=== PATIENT | male | born 1980 | race African-American/Black ===

== ENCOUNTER 2016-12-10 23:07 | Emergency (ER) | payer OTHER ==
[~2016-12-10] VITALS: Ht 177.8 cm; Wt 79.4 kg
[~2016-12-10 23:07] MED LIST: BACTRIM DS TAB1 EACH PO; NAPROSYN500 MG PO; NORCO 5-325 TA1 EACH PO
[2016-12-10 23:09] VITALS: BP 139/99
[2016-12-10 23:33] LABS: URINE BILIRUBIN NEGATIVE (Negative); URINE BLOOD TRACE (Negative); URINE COLOR YELLOW; URINE GLUCOSE-RANDOM* NEGATIVE (Negative); URINE KETONES NEGATIVE (Negative); URINE LEUKOCYTES-REFLEX 1+ (Negative); URINE PROTEIN (DIPSTICK) TRACE (Negative); URINE UROBILINOGEN 0.2 E.U./dl (0.2-1.0)
[2016-12-10 23:51] LABS: SQUAMOUS 0-3 Few /LPF (0-3)
[2016-12-10 23:52] LABS: CASTS None Seen /LPF (None Seen); CRYSTALS None Seen /LPF (None Seen); UA COMMENTS SPERM PRESENT; URINE RBC 0-2 Rare /HPF (0-2)
== END 2016-12-11 00:05 | disposition home or self-care (01) ==
LOC: ER 23:07
PROVIDERS: Physician Assistant
DX: Z11.3 Encounter for screening for infections with a predominantly sexual mode of transmission (principal); F17.210 Nicotine dependence, cigarettes, uncomplicated

== ENCOUNTER 2017-12-13 13:02 | Emergency (ER) | payer OTHER ==
[~2017-12-13] VITALS: Ht 177.8 cm; Wt 83.9 kg
[~2017-12-13 13:02] MED LIST changes: +DIFLUCAN150 MG PO; +FLAGYL500 MG PO
[2017-12-13 14:07] LABS: URINE BILIRUBIN NEGATIVE (Negative); URINE BLOOD NEGATIVE (Negative); URINE CLARITY CLEAR; URINE COLOR YELLOW; URINE GLUCOSE-RANDOM* NEGATIVE (Negative); URINE KETONES NEGATIVE (Negative); URINE LEUKOCYTES NEGATIVE (Negative); URINE NITRITE NEGATIVE (Negative); URINE PROTEIN (DIPSTICK) NEGATIVE (Negative); URINE UROBILINOGEN 0.2 E.U./dl (0.2-1.0)
[2017-12-13 14:34] VITALS: BP 127/82
== END 2017-12-13 14:35 | disposition home or self-care (01) ==
LOC: ER 13:02
PROVIDERS: Emergency Medicine
DX: Z20.2 Contact with and (suspected) exposure to infections with a predominantly sexual mode of transmission (principal); R36.9 Urethral discharge, unspecified; F17.210 Nicotine dependence, cigarettes, uncomplicated